=== PATIENT | female | born 1975 | race Caucasian/White ===

== ENCOUNTER 2016-10-29 09:20 | Day surgery (SDC) | payer BC ==
[~2016-10-29 09:20] MED LIST: RINGERS SOLUTION,LACTATED 1,000 ML IV PRN
--- OUTSIDE RECORDS SUMMARY | 2016-10-29 09:25 | XMS REPORT | Continuity of Care Document ---
:1975 Author Organization [facility] [place] [address] Care Team Providers Name Role Phone Unavailable Primary Care Provider Unavailable Source Comments This disclosure is being made pursuant to the [employer] program and maynot contain all information available regarding this patient.[facility] Active Allergies and Adverse Reactions Not on File Current Medications Be aware that medications may not be up to date as of this document. Alwaysverify current medications with the patient. Not on file Active Problems Not on file Social History Tobacco Use Types Packs/Day Years Used Date Never Assessed Plan of Care Health Maintenance Due Date Last Done Comments Tetanus/Pertussis (1 - Tdap) 1995 Pap Smear 1997 Retired-INFLUENZA VACCINE 03/21/2016 Results from Last 3 Months Not on file
--- OUTSIDE RECORDS SUMMARY | 2016-10-29 09:25 | XMS REPORT | Continuity of Care Document ---
:1975 Author Organization [facility] ([facility]) Address [address] [place] [address] Phone [phone] Care Team Providers Name Role Phone Nile Sebastian Primary Care Provider [phone] Source Comments This disclosure is being made pursuant to the Care Everywhere program, applicable federal and state laws, and may not contain all informaitonavailable regarding this patient.[facility] ([facility]) Active Allergies and Adverse Reactions Not on File Current Medications Not on file Active Problems Not on file Social History Tobacco Use Types Packs/Day Years Used Date Never Assessed Plan of Care Health Maintenance Due Date Last Done Comments Hepatitis B Vaccine (1 of 3 - Primary Series) 1976 Tdap Vaccine 1987 Lipid Disorder Screening 1994 MMR Vaccine 1994 Td Vaccine 1994 Cervical Cancer Screening 2006 Influenza Vaccine: Seasonal (#1) 02/19/2016 Mammogram 2016 Results from Last 3 Months Not on file
[2016-10-29 09:44] LABS: Hematocrit 43.5 % (37.0-47.0); Mean Cell Volume 89.7 fl (78-100); Mean Corpuscular Hemoglobin 30.9 pg (27-31); Mean Corpuscular Hgb Conc 34.5 g/dl (32-36); Mean Platelet Volume 10.4 fl (6.0-9.5); Neutrophil # 3.5 K/mm3 (1.3-6.0); Neutrophil % 50.4 % (42-75.0); Platelet Count 244 K/mm3 (150-450); Red Blood Count 4.85 M/mm3 (4.2-5.4); Red Cell Distribution Width 12.2 % (11.5-14.0)
[2016-10-29] MEDS ORDERED: RINGERS SOLUTION,LACTATED 1,000 ML IV ONE (10:18)
[2016-10-29] MEDS ORDERED: IBUPROFEN 600 MG TABLET PO PRN (11:02)
[2016-10-29] MEDS ORDERED: oxyCODONE HCL/ACETAMINOPHEN 1 TAB TABLET PO PRN (11:02)
[2016-10-29 12:32] VITALS: BP 104/71
--- NOTE | 2016-10-29 12:45 | OR ---
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 Anesthesia: Noel Loredo,EFRA, IV sedation Findings: Loop 20 x 8 mm loop Fluids: 100 ml EBL: Minimal Drains: None Pathology: LEEP specimen Complications: 2 cm straight incision of the left vaginal side wall made with loop Condition: Stable Procedure: The patient was taken to the operating room with IV fluids running. She was placed in dorsal lithotomy position. She was prepped and draped in the normal sterile fashion. A coated bivalve speculum was placed into the vagina. The cervix was visualized with the findings noted above. LEEP was performed with 20 x 8 mm loop with effort to preserve IUD strings. One of the IUD strings was cut during the procedure. The entire area was cauterized with rollerball Bovie cautery. It is of note that the left vaginal side wall was incised with the loop. The incision was approximately 2 cm in length. The area was hemostatic. The patient tolerated the procedure well. Sponge counts were correct x 2. She was taken to ambulatory in stable condition. She was informed postoperatively about the incision of the left vaginal side wall.
== END 2016-10-29 09:21 | disposition home or self-care (01) ==
LOC: AMB 09:20
PROVIDERS: ATTEND Obstetrics & Gynecology
PROC: 0UBC7ZX Excision of Cervix, Via Natural or Artificial Opening, Diagnostic (ICD-10-PCS; principal; 2016-10-29 10:35)
DX: D06.9 Carcinoma in situ of cervix, unspecified (principal); E11.9 Type 2 diabetes mellitus without complications; E78.5 Hyperlipidemia, unspecified; J44.9 Chronic obstructive pulmonary disease, unspecified; K21.9 Gastro-esophageal reflux disease without esophagitis; F41.9 Anxiety disorder, unspecified; F17.200 Nicotine dependence, unspecified, uncomplicated; Z68.38 Body mass index [BMI] 38.0-38.9, adult